=== PATIENT | female | born 1990 | race Caucasian/White ===

== ENCOUNTER 2021-09-19 12:01 | Emergency (ER) | payer OTHER ==
[~2021-09-19] VITALS: Ht 157.5 cm; Wt 77.0 kg
[2021-09-19] MEDS ORDERED: KETOROLAC 30MG/ML VIAL IM ONE (12:15)
[2021-09-19] MEDS ORDERED: AMOX-494 MT (12:17)
[2021-09-19] MEDS ORDERED: OFLO5DRO4 EACH EAR (12:17)
[2021-09-19] MEDS ORDERED: IBUP-2029 MT (12:17)
[2021-09-19 12:39] VITALS: BP 105/75
== END 2021-09-19 12:43 | disposition home or self-care (01) ==
LOC: ER 12:01
DX: H66.93 Otitis media, unspecified, bilateral (principal)
CPT/HCPCS: 96372; 99283; J1885

== ENCOUNTER 2022-05-11 15:51 | Emergency (ER) | payer MEDICAID, OTHER ==
[~2022-05-11] VITALS: Ht 157.5 cm; Wt 82.0 kg
[~2022-05-11 15:51] MED LIST: AMOX-494 MT; IBUP-2029 MT; OFLO5DRO4 EACH EAR
[2022-05-11 16:19] VITALS: BP 110/65
[2022-05-11] MEDS ORDERED: AMOX-494 MT (16:26)
[2022-05-11] MEDS ORDERED: IBUP-2029 MT (16:26)
[2022-05-11] MEDS ORDERED: OFLO5DRO4 EACH EAR (16:26)
== END 2022-05-11 17:27 | disposition home or self-care (01) ==
LOC: ER 15:51
DX: H66.90 Otitis media, unspecified, unspecified ear (principal)
CPT/HCPCS: 99281

== ENCOUNTER 2023-10-12 03:23 | Emergency (ER) | payer OTHER ==
[~2023-10-12] VITALS: Ht 157.5 cm; Wt 80.0 kg
[2023-10-12 03:39] VITALS: TEMP 98.7; O2SAT 97
[2023-10-12] MEDS ORDERED: CETI10TA6 MT (07:29)
[2023-10-12] MEDS ORDERED: P50 PO (07:29)
[2023-10-12] MEDS ORDERED: FAMO-135 MT (07:29)
[2023-10-12 08:07] VITALS: BP 116/72; PULSE 82; RESP 20
== END 2023-10-12 08:08 | disposition home or self-care (01) ==
LOC: ER 03:23
DX: T78.40XA Allergy, unspecified, initial encounter (principal); Z98.890 Other specified postprocedural states; X58.XXXA Exposure to other specified factors, initial encounter
CPT/HCPCS: 99283